=== PATIENT | female | born 1990 | race Native Hawaiian/Other Pacific Islander ===

== ENCOUNTER → 2019-11-24 17:23 | Outpatient (CLI) | payer OTHER, SELFPAY ==
[2019-11-24 19:53] LABS: Urine N gonorrhoeae NOT DETECTED
[2019-11-24 20:48] LABS: Urine Chlamydia NOT DETECTED
[2019-11-25 03:17] LABS: HBsAg Screen Negative (Negative); Hepatitis A Antibody IgM Negative (Negative); Hepatitis B Core Antibody IgM Negative (Negative); Hepatitis C Antibody 0.1 s/co ratio (0.0-0.9)
[2019-11-25 04:36] LABS: RPR Screen Non Reactive (Non Reactive)
[2019-11-25 20:07] LABS: HSV I/II IgM <0.91 Ratio (0.00-0.90)
[2019-11-26 16:31] LABS: HIV 1 & 2 Ab/Ag 4th Gen Combo NEGATIVE (NEGATIVE)
== END ==
PROVIDERS: PCP Family Medicine; Referring Provider Family Medicine; Visit Provider Family Medicine
DX: Z20.2 Contact with and (suspected) exposure to infections with a predominantly sexual mode of transmission (principal)
CPT/HCPCS: 36415; 80074; 86592; 86694; 87389; 87491; 87591

== ENCOUNTER 2019-11-30 13:16 | Emergency (ER) | payer OTHER, SELFPAY ==
[2019-11-30 13:30] VITALS: PULSE 119; RESP 20; TEMP 36.7; O2SAT 98; BMI 44.9
[2019-11-30] MEDS: CYCLOBENZAPRINE 10 MG TABLET PO (16:16)
--- NOTE | 2019-11-30 16:17 | ED_ITS ---
HPI - Headache <BASILIO Chapmion-BC - Last Filed: 11/30/19 18:26> General Chief Complaint: Headache Stated Complaint: migrane Time Seen by Provider: 11/30/19 15:12 Source: patient Mode of arrival: Ambulatory Limitations: no limitations History of Present Illness HPI Narrative: The patient is a 29-year-old female former smoker with history of migraines who presents with a chief complaint of a migraine. She has had it since Saturday, started with pain in her neck going up over her head. She complains of photophobia, phonophobia, nausea with vomiting yesterday. She states she took Aleve to try to help the headache initially, has not taken anything in a few days. She states that her vision is okay though light hurts her eyes. Denies any cognitive neurological changes. She states that she has a pending referral to Neurology that is not gone through yet. She started a new primary care provider on 11/23. She denies any thunderclap sensation. The headache got a little better on Saturday, though then reoccurred. Related Data Home Medications Medication Instructions Recorded Confirmed CHOLECALCIFEROL (VITAMIN D3) 5,000 iu PO QDAY #0 11/30/11 12/02/19 (VITAMIN D) ENZYMES (DIGESTIVE ENZYMES) 1 tab PO BID #0 11/30/11 12/02/19 prochlorperazine maleate 10 mg 10 mg PO tab 11/24/19 12/02/19 tablet Previous Rx's Medication Instructions Recorded metaxalone 800 mg tablet 800 mg PO TID #60 tab 12/02/19 ondansetron 4 mg disintegrating 4 mg SUBLINGUAL Q8HP #20 tab 12/02/19 tablet sumatriptan 20 mg/actuation nasal 20 mg NASAL ONCE #1 each 12/02/19 spray Allergies Allergy/AdvReac Type Severity Reaction Status Date / Time acetaminophen [ACETAMINOPHEN] Allergy Mild NAUSEA/ Verified 12/02/19 08:33 VICODIN hydrocodone [HYDROCODONE] Allergy Mild VOMITING/ Verified 12/02/19 08:33 VICODIN Review of Systems <JEANETTE ChampionBC - Last Filed: 11/30/19 18:26> Review of Systems Narrative: GENERAL: Denies chills, fatigue, malaise, fever, sweats. HEENT: Denies sinus pain, ear pain, sore throat, difficulty swallowing, dizziness. RESPIRATORY: Denies dyspnea, cough, wheezing, hemoptysis, sputum. CARDIOVASCULAR: Denies chest pain, palpitations, orthopnea, edema, GASTROINTESTINAL: Denies nausea, vomiting, abdominal pain, diarrhea, constipation, melena. : Denies dysuria, frequency, incontinence, hematuria, urinary retention. MUSCULOSKELETAL: denies weakness, joint pain, or bony pain SKIN: Denies rash, skin lesions, or other NEUROLOGIC: See HPI PSYCHIATRIC: No concerning psychosocial issues. 12 point review of systems is negative except for those stated above Patient History <JENI Champion - Last Filed: 11/30/19 18:26> Medical History (Updated 12/02/19 @ 09:25 by MARGOT Lee) Migraines (Acute) Nausea (Acute) Neck tightness (Acute) Social History Smoking Status: Former smoker Tobacco: How many years used: 9 quit status: quit date established second hand exposure: No alcohol intake: current (Drinks once in awhile ) substance use type: marijuana (1/4-1/2 gram per night to help with sleep) Smoking Status: Former smoker alcohol intake frequency: holidays/special occasions only Substance Use Type: marijuana Exam <JENI Champion - Last Filed: 11/30/19 18:26> Narrative Exam Narrative: GENERAL: This is a well-nourished, well-developed patient, appears uncomfortable HEAD: Atraumatic. Normocephalic. No temporal or scalp tenderness. EYES: Pupils equal round and reactive. Extraocular motions intact. No scleral icterus. No injection or drainage. ENT: Nose without bleeding, purulent drainage or septal hematoma. Throat without erythema, tonsillar hypertrophy or exudate. Uvula midline. Airway patent. NECK: Trachea midline. No JVD or lymphadenopathy. Supple, nontender, no meningeal signs. Pain to paraspinal muscle palpation. CARDIOVASCULAR: Regular rate and rhythm RESPIRATORY: Clear to auscultation. Breath sounds equal bilaterally. No wheezes, rales, or rhonchi. No cough. No increased respiratory effort. No accessory muscle use. GASTROINTESTINAL: Abdomen soft, non-tender, nondistended. No hepato- splenomegaly, or palpable masses. No guarding. EXTREMITIES: No clubbing, cyanosis, or edema. No joint tenderness, effusion, or edema noted. BACK: Nontender without deformity or crepitance. No flank tenderness. NEURO: AOx3. Cranial nerves grossly intact. Clear speech. SKIN: No rash or erythema on visible skin Initial Vital Signs Initial Vital Signs: Vital Signs Temperature 98.0 F 11/30/19 13:30 Pulse Rate 119 H 11/30/19 13:30 Respiratory Rate 20 11/30/19 13:30 Pulse Oximetry 98 11/30/19 13:30 <Renetta Llanos MD - Last Filed: 12/08/19 08:27> Initial Vital Signs Initial Vital Signs: Vital Signs Temperature 98.0 F 11/30/19 13:30 Pulse Rate 119 H 11/30/19 13:30 Respiratory Rate 20 11/30/19 13:30 Pulse Oximetry 98 11/30/19 13:30 Scores <JENI Champion - Last Filed: 11/30/19 18:26> GCS [place] coma scale eye opening: Spontaneous [place] coma scale verbal response: Orientated [place] coma scale motor response: Obey commands [place] coma scale total score: 15 NIH Stroke Scale Level of Conciousness: Alert, keenly responsive Ask month/age: Answers both questions correctly. Open/close eyes, close hand: Performs both tasks correctly Best gaze horizontal: Normal Visual archibald: No visual loss Facial palsy: Normal symetrical movement Left arm drift: No drift for full 10 sec Right arm drift: No drift for full 10 sec Left leg drift: No drift for full 10 sec Right leg drift: No drift for full 10 sec Limb ataxia: Absent Sensory on face/arms/legs: Normal, no sensory loss Best language: No aphasia, normal Dysarthria: Normal Extinction or inattention: No abnormality Total NIH Stroke scale score: 0 Course <JENI Champion - Last Filed: 11/30/19 18:26> Orders Ordered: Discontinued Medications Cyclobenzaprine HCl (Flexeril) 10 mg PO NOW ONE Stop: 11/30/19 15:35 Last Admin: 11/30/19 16:16 Dose: 10 mg Documented by: CRISTIAN Diphenhydramine HCl (Benadryl) 25 mg IV NOW ONE Stop: 11/30/19 15:35 Last Admin: 11/30/19 16:18 Dose: 25 mg Documented by: CRISTIAN Sodium Chloride (Normal Saline 0.9%) 1,000 mls @ 1,000 mls/hr IV BOLUS ONE Stop: 11/30/19 16:33 Last Infusion: 11/30/19 18:35 Dose: 0 mls/hr Documented by: Admin: 11/30/19 16:18 Dose: 1,000 mls/hr Documented by: CRISTIAN Ketorolac Tromethamine (Toradol) 30 mg IV NOW ONE Stop: 11/30/19 15:35 Last Admin: 11/30/19 16:28 Dose: 30 mg Documented by: CRISTIAN Metoclopramide HCl (Reglan) 10 mg IV NOW ONE Stop: 11/30/19 15:35 Last Admin: 11/30/19 16:19 Dose: 10 mg Documented by: CRISTIAN Vital Signs Vital signs: Vital Signs - 8 hr 11/30/19 13:30 11/30/19 18:19 Temperature 98.0 F Pulse Rate 119 H 73 Respiratory Rate 20 16 Blood Pressure 137/88 Pulse Oximetry 98 98 <Renetta Llanos MD - Last Filed: 12/08/19 08:27> Orders Ordered: Discontinued Medications Cyclobenzaprine HCl (Flexeril) 10 mg PO NOW ONE Stop: 11/30/19 15:35 Last Admin: 11/30/19 16:16 Dose: 10 mg Documented by: CRISTIAN Diphenhydramine HCl (Benadryl) 25 mg IV NOW ONE Stop: 11/30/19 15:35 Last Admin: 11/30/19 16:18 Dose: 25 mg Documented by: CRISTIAN Sodium Chloride (Normal Saline 0.9%) 1,000 mls @ 1,000 mls/hr IV BOLUS ONE Stop: 11/30/19 16:33 Last Infusion: 11/30/19 18:35 Dose: 0 mls/hr Documented by: Admin: 11/30/19 16:18 Dose: 1,000 mls/hr Documented by: CRISTIAN Ketorolac Tromethamine (Toradol) 30 mg IV NOW ONE Stop: 11/30/19 15:35 Last Admin: 11/30/19 16:28 Dose: 30 mg Documented by: CRISTIAN Metoclopramide HCl (Reglan) 10 mg IV NOW ONE Stop: 11/30/19 15:35 Last Admin: 11/30/19 16:19 Dose: 10 mg Documented by: CRISTIAN Vital Signs Vital signs: Vital Signs - 8 hr 11/30/19 13:30 11/30/19 18:19 Temperature 98.0 F Pulse Rate 119 H 73 Respiratory Rate 20 16 Blood Pressure 137/88 Pulse Oximetry 98 98 MDM - Headache <JENI Champion - Last Filed: 11/30/19 18:26> Differential Diagnosis Differential diagnosis: Likely migraine, tension headache and headache Lab Data Labs: Lab Results 11/30/19 Range/Units 16:27 Urine RBC None seen (0-5/HPF) Urine WBC 5-10/hpf H (0-5/HPF) Ur Squamous Epith Cells 1-5 /hpf (0-5/HPF) Urine Bacteria Moderate (10-30) H (None) Urine Mucus 1+ H (Negative) Ur Culture Indicated? Specimen cultured Point of Care Testing Test Results Negative Urine Dip Bedside Urine Glucose Negative Bedside Urine Bilirubin + 1 Bedside Urine Ketone +/- 5 Urine Specific [place] 1.025 Bedside Urine Occult Blood - Negative Bedside Urine pH 6.0 Bedside Urine Protein +/- 15 Bedside Urine Urobilinogen - Negative Bedside Urine Nitrite - Negative Bedside Urine Leukocytes ++ 125 Esterase MDM Narrative Medical decision making narrative: The patient is a 29-year-old female with history of migraines who presents with a chief complaint of a migraine the past few days. Her GCS is 15, her NIH score is 0, and she feels much improved after the above-stated therapies and is requesting to go home. I encouraged rest, pushing fluids, follow-up with primary care provider in the next few days. Discussed at length that she should come back to the emergency department for any acute concerns such as neurological concerns. Patient has no questions or concerns upon discharge and states understanding of return precautions as well as follow-up care. The patient was well and nontoxic appearing, hemodynamically stable throughout her stay in the emergency department <Renetta Llanos MD - Last Filed: 12/08/19 08:27> Lab Data Labs: Lab Results 08/31/20 Range/Units 16:27 Urine RBC None seen (0-5/HPF) Urine WBC 5-10/hpf H (0-5/HPF) Ur Squamous Epith Cells 1-5 /hpf (0-5/HPF) Urine Bacteria Moderate (10-30) H (None) Urine Mucus 1+ H (Negative) Ur Culture Indicated? Specimen cultured Point of Care Testing Test Results Negative Urine Dip Bedside Urine Glucose Negative Bedside Urine Bilirubin + 1 Bedside Urine Ketone +/- 5 Urine Specific [place] 1.025 Bedside Urine Occult Blood - Negative Bedside Urine pH 6.0 Bedside Urine Protein +/- 15 Bedside Urine Urobilinogen - Negative Bedside Urine Nitrite - Negative Bedside Urine Leukocytes ++ 125 Esterase Discharge Plan Departure Patient Disposition: Home Clinical Impression: Migraine Qualifiers: Migraine type: unspecified Status migrainosus presence: without status migrainosus Intractability: not intractable Qualified Code(s): G43.909 - Migraine, unspecified, not intractable, without status migrainosus Discharge Date/Time: 11/30/19 18:38 Instructions: DI for Migraine, DI for Headache Activity Restrictions/Additional Instructions: Thank you for trusting us with your care today Today we medicated due for a migraine in your responded well. Please go home and rest, push fluids. He can use [id number] medications as needed and able Please come back to the emergency department for any acute concerns such as neurological concerns Prescriptions: No Action ENZYMES (DIGESTIVE ENZYMES) 1 tab PO BID Qty: 0 RF: 0 CHOLECALCIFEROL (VITAMIN D3) (VITAMIN D) 5,000 iu PO QDAY Qty: 0 RF: 0 prochlorperazine maleate 10 mg tablet 10 mg PO RF: 0 sumatriptan 20 mg/actuation spray,non-aerosol 20 mg NASAL ONCE Qty: 1 RF: 0 ondansetron 4 mg tablet,disintegrating 4 mg Sublingual Q8HP Qty: 20 RF: 0 metaxalone [Skelaxin] 800 mg tablet 800 mg PO TID Qty: 60 RF: 0 Referrals: Hans Prescott, DO [Primary Care Provider] - Stand Alone Forms: Work Release Note <Renetta Llanos MD - Last Filed: 12/08/19 08:27> Cosign ED Attending Aaronature Attestation: I was immediately available in the department for consultation throughout this patient's visit. I agree with documentation as above. Renetta Llanos MD
[2019-11-30] MEDS: diphenhydrAMINE 50 MG/ML VIAL 25 MG IV (16:18)
[2019-11-30] MEDS: SODIUM CHLORIDE 0.9% 1,000 ML 1000 ML IV (16:18)
[2019-11-30] MEDS: METOCLOPRAMIDE 10 MG/2 ML INJ IV (16:19)
[2019-11-30] MEDS: KETOROLAC 60 MG/2 ML VIAL 30 MG IV (16:28)
[2019-11-30 16:39] LABS: RBC Urine None Seen (0-5/HPF)
[2019-11-30 17:01] LABS: Bacteria Urine Moderate (10-30); Culture Indicated Urine Specimen Cultured; Mucus Urine 1+ (Negative); Squamous Epithelial Cell Urine 1-5 /HPF (0-5/HPF); WBC Urine 5-10/HPF (0-5/HPF)
[2019-11-30 18:19] VITALS: BP 137/88; PULSE 73; RESP 16; O2SAT 98
== END 2019-11-30 18:38 | disposition home or self-care (01) ==
PROVIDERS: Emergency Provider Nurse Practitioner Family; PCP Family Medicine
DX: G43.909 Migraine, unspecified, not intractable, without status migrainosus (principal); R11.2 Nausea with vomiting, unspecified
CPT/HCPCS: 36415; 81003; 81015; 81025; 87077; 87086; 87147; 87186; 96361; 96374; 96375; 99284; J1200; J1885; J2765

== ENCOUNTER → 2020-07-29 16:28 | Outpatient (CLI) | payer OTHER, SELFPAY ==
[2020-07-29 16:53] LABS: COVID19 -Nasal RAPID Negative (Negative)
== END ==
PROVIDERS: PCP Family Medicine; Visit Provider Student in an Organized Health Care Education/Training Program
DX: Z20.822 Contact with and (suspected) exposure to COVID-19 (principal)
CPT/HCPCS: 87635

== ENCOUNTER → 2024-06-17 09:23 | Outpatient (CLI) | payer OTHER, SELFPAY ==
[2024-06-17 10:34] LABS: Glucose Fasting 107 mg/dL (70-100)
[2024-06-17 11:34] LABS: Glucose 1 Hour 199 mg/dL (70-170)
[2024-06-17 11:48] LABS: Glucose Tol Interpretation INTERPRETATION
[2024-06-17 12:42] LABS: Glucose 2 Hour 190 mg/dL (70-140)
== END ==
PROVIDERS: Referring Provider Nurse Practitioner Obstetrics & Gynecology; Visit Provider Nurse Practitioner Obstetrics & Gynecology
DX: Z34.90 Encounter for supervision of normal pregnancy, unspecified, unspecified trimester (principal); Z13.1 Encounter for screening for diabetes mellitus; Z3A.16 16 weeks gestation of pregnancy
CPT/HCPCS: 36415; 82951; 82952

== ENCOUNTER → 2024-08-26 09:11 | Outpatient (CLI) | payer OTHER, SELFPAY ==
[2024-08-26 10:39] LABS: Glucose Fasting 104 mg/dL (70-100)
[2024-08-26 12:03] LABS: Glucose 1 Hour 214 mg/dL (70-170)
[2024-08-26 12:37] LABS: Glucose 2 Hour 127 mg/dL (70-140); Glucose Tol Interpretation INTERPRETATION
== END ==
PROVIDERS: Referring Provider Nurse Practitioner Obstetrics & Gynecology; Visit Provider Nurse Practitioner Obstetrics & Gynecology
DX: Z34.90 Encounter for supervision of normal pregnancy, unspecified, unspecified trimester (principal); Z13.1 Encounter for screening for diabetes mellitus; Z3A.16 16 weeks gestation of pregnancy
CPT/HCPCS: 36415; 82951; 82952

== ENCOUNTER 2024-09-04 15:36 | Emergency (ER) | payer OTHER, SELFPAY ==
[2024-09-04 15:38] VITALS: BP 132/91; PULSE 100; RESP 16; TEMP 36.9; O2SAT 97; BMI 44.4
[2024-09-04 15:55] LABS: Add Manual Diff / Slide Review NO; Basophils Absolute Auto 0 /uL (0-100); Basophils Percent Auto 0.3 % (0-2); Eosinophils Absolute Auto 0 /uL (0-450); Eosinophils Percent Auto 0.3 % (2-4); Hematocrit 36.2 % (36-46); Lymphocytes Absolute Auto 2200 /uL (1100-4500); Lymphocytes Percent Auto 24.1 % (25-40); Mean Corpuscular HGB Conc 33.2 % (30-36); Mean Corpuscular Hemoglobin 27.5 PG (26-34); Mean Corpuscular Volume 82.9 fL (80-100); Monocytes Absolute Auto 600 /uL (0-900); Monocytes Percent Auto 6.4 % (3-14); Neutrophils Absolute Auto 6400 /uL (1500-7000); Neutrophils Percent Auto 68.9 % (50-75); Platelet Count 261 X10^3/uL (150-400); Red Blood Cell Count 4.37 X10^6/uL (4.0-5.2); Red Cell Distribution Width 13.9 % (11.6-14.8); White Blood Cell Count 9.2 X10^3/uL (4.5-11.0)
[2024-09-04 16:06] LABS: Alanine Aminotransferase 34 IU/L (<35); Albumin 4.6 g/dL (3.5-5.0); Albumin Globulin Ratio 1.4 (1.0-2.8); Alkaline Phosphatase 70 U/L (38-126); Aspartate Aminotransferase 37 IU/L (14-36); BUN Creatinine Ratio 9.2 (6-22); Bilirubin Total 2.2 mg/dL (0.2-1.3); Blood Urea Nitrogen 7 mg/dL (7-17); Calcium 9.2 mg/dL (8.4-10.2); Carbon Dioxide 18 mmol/L (22-32); Chloride 109 mmol/L (98-107); Estimated Glomerular Filt Rate > 60 mL/min (>60); Globulin 3.3 g/dL (1.7-4.1); Glucose 98 mg/dL (70-99); HEMOLYSIS < 15 (0-50); Lipase 43 U/L (23-300); Potassium 3.1 mmol/L (3.4-5.1); Sodium 139 mmol/L (137-145); Total Protein 7.9 g/dL (6.3-8.2)
[2024-09-04] MEDS: ONDANSETRON 4 MG/2 ML INJ IV (16:20)
[2024-09-04] MEDS: HYDROMORPHONE 1 MG INJ IV ×3 (16:20→18:49)
[2024-09-04] MEDS: SODIUM CHLORIDE 0.9% 1,000 ML 1000 ML IV (16:20)
--- NOTE | 2024-09-04 16:23 | ED.ABDPAIN ---
HPI - Abdominal Pain <Randall Nuno, DO - Last Filed: 09/04/24 18:35> General Chief Complaint: Abdominal Pain Stated Complaint: Abd. Pain Time Seen by Provider: 09/04/24 15:40 History of Present Illness HPI narrative: 34-year-old female history of kidney stone and recent termination of at 19 weeks in [place] to a nonviable back in June this year presents today at 2:00 p.m. after being woken up from sleep right upper quadrant pain radiating to the back along with nausea. She did have a bowel movement earlier today and that was normal. She denies fever, chills, chest pain, shortness of breath, cough, hematuria, vaginal discharge, UTI symptoms, diarrhea or constipation. Other than what is stated 14 point review of system is negative. Related Data Home Medications ?Medication ?Instructions ?Recorded ?Confirmed ENZYMES (DIGESTIVE ENZYMES) 1 tab PO BID ##0 11/30/11 07/29/20 prochlorperazine maleate 10 mg 10 mg PO 11/24/19 07/29/20 tablet metaxalone 800 mg tablet (Skelaxin) 800 mg PO TID PRN 01/01/20 07/29/20 Previous Rx's ?Medication ?Instructions ?Recorded trazodone 50 mg tablet 50 mg PO BEDTIME #30 tabs 12/16/19 sumatriptan succinate 100 mg See Rx Instructions PO .COMPLEX 12/23/19 tablet (Imitrex) #10 tabs hydrocodone 5 mg-acetaminophen 325 1 tab PO Q4-6H PRN pain #20 tabs 09/04/24 mg tablet ondansetron 4 mg disintegrating 4 mg PO Q6H PRN nausea and 09/04/24 tablet vomiting #10 tabs tamsulosin 0.4 mg capsule (Flomax) 0.4 mg PO BEDTIME #30 caps 09/04/24 Allergies Allergy/AdvReac Type Severity Reaction Status Date / Time acetaminophen (ACETAMINOPHEN) Allergy Mild NAUSEA/ Verified 07/29/20 16:27 VICODIN hydrocodone (HYDROCODONE) Allergy Mild VOMITING/ Verified 07/29/20 16:27 VICODIN Review of Systems <Randall Nuno, DO - Last Filed: 09/04/24 18:35> Review of Systems ROS Unobtainable: All systems reviewed & are unremarkable except as noted in HPI and below Patient History <Randall Nuno, DO - Last Filed: 09/04/24 18:35> Medical History Abscess Acne Ankle pain (~2014) Chicken pox (~1995) Chlamydia (~2013) Fractures History of recurrent ear infection Insomnia Irregular menstrual cycle (~2004) Migraine aura without headache Migraines Nausea Neck tightness Nexplanon removal (12/2019) Recurrent sinusitis Sleep apnea (~2009) Vaginal cysts Surgical History Anesthesia History of intestinal surgery (~1988) Kidney stones (~2016) Family History Father Diabetes mellitus Hyperlipidemia Hypertension Mental health problem Stroke Mother Diabetes mellitus History of heart disease Hyperlipidemia Hypertension Mental health problem Social History Tobacco: How many years used: 9 quit status: quit date established second hand exposure: No alcohol intake: current (Drinks once in awhile ) substance use type: marijuana (1/4-1/2 gram per night to help with sleep) alcohol intake frequency: holidays/special occasions only Exam <Randall Nuno, DO - Last Filed: 09/04/24 18:35> Narrative Exam Narrative: GENERAL: [34] year old patient appears stated age. Well-developed patient, in mild distress. HEAD: Atraumatic. Normocephalic. EYES: Pupils equal round and reactive. Extraocular motions intact. No scleral icterus. No injection or drainage. ENT: Nose without bleeding, purulent drainage. Throat without erythema, tonsillar hypertrophy or exudate. Airway patent. NECK: Trachea midline. Non tender CARDIOVASCULAR: Regular rate and rhythm without murmurs, gallops, or rubs. RESPIRATORY: Clear to auscultation. Breath sounds equal bilaterally. No wheezes, rales, or rhonchi. GASTROINTESTINAL: Abdomen soft, RUQ TTP, nondistended. EXTREMITIES: No edema or joint tenderness. BACK: Nontender without deformity or crepitance. No flank tenderness. NEURO: AOx3. SKIN: No rash or erythema of visible areas Initial Vital Signs Initial Vital Signs: Vital Signs Temperature 98.4 F 09/04/24 15:38 Pulse Rate 100 H 09/04/24 15:38 Respiratory Rate 16 09/04/24 15:38 Blood Pressure 132/91 H 09/04/24 15:38 Pulse Oximetry 97 09/04/24 15:38 Oxygen Delivery Method Room Air 09/04/24 15:38 <Guanaco Waters MD - Last Filed: 09/05/24 02:15> Initial Vital Signs Initial Vital Signs: Vital Signs Temperature 98.4 F 09/04/24 15:38 Pulse Rate 100 H 09/04/24 15:38 Respiratory Rate 16 09/04/24 15:38 Blood Pressure 132/91 H 09/04/24 15:38 Pulse Oximetry 97 09/04/24 15:38 Oxygen Delivery Method Room Air 09/04/24 15:38 Course <Randall Nuno DO - Last Filed: 09/04/24 18:35> Orders Ordered: ED Orders 09/04/24 18:01 UA Complete [Urinalysis and Microscopic] Stat Discontinued Medications Hydromorphone HCl (Hydromorphone 1 Mg Inj) 1 mg IV NOW ONE Stop: 09/04/24 16:15 Last Admin: 09/04/24 16:20 Dose: 1 mg Documented By: ARIAN Hydromorphone HCl (Hydromorphone 1 Mg Inj) 1 mg IV NOW ONE Stop: 09/04/24 16:16 Last Admin: 09/04/24 16:43 Dose: 1 mg Documented By: ARIAN Hydromorphone HCl (Hydromorphone 1 Mg Inj) 1 mg IV NOW ONE Stop: 09/04/24 18:32 Last Admin: 09/04/24 18:49 Dose: 1 mg Documented By: SHARRON Sodium Chloride (Normal Saline 0.9%) 1,000 mls @ 1,000 mls/hr IV BOLUS ONE Stop: 09/04/24 17:14 Last Infusion: 09/04/24 17:47 Dose: Infused Documented By: Admin: 09/04/24 16:20 Dose: 1,000 mls/hr Documented By: ARIAN Ondansetron HCl (Ondansetron 4 Mg/2 Ml Inj) 4 mg IV NOW PRN PRN Reason: Nausea And Vomiting Last Admin: 09/04/24 16:20 Dose: 4 mg Documented By: ARIAN Ondansetron HCl (Ondansetron 4 Mg Odt) 4 mg PO NOW PRN PRN Reason: Nausea And Vomiting Last Admin: 09/04/24 18:50 Dose: 4 mg Documented By: SHARRON Ondansetron HCl (Ondansetron 4 Mg Odt Prepack) 1 bottle MISC DIRECTED ONE Stop: 09/04/24 20:09 Last Admin: 09/04/24 20:18 Dose: 1 bottle Documented By: RLC Potassium Chloride (Potassium Chloride 20 Meq/15 Ml Udc) 40 meq PO NOW ONE Stop: 09/04/24 16:46 Last Admin: 09/04/24 17:50 Dose: 40 meq Documented By: LM Tamsulosin HCl (Tamsulosin 0.4 Mg Capsule) 0.4 mg PO NOW ONE Stop: 09/04/24 18:24 Last Admin: 09/04/24 18:50 Dose: 0.4 mg Documented By: LM Vital Signs Vital signs: Vital Signs - 8 hr 09/04/24 19:21 09/04/24 19:25 09/04/24 19:25 Pulse Rate 69 62 Respiratory Rate 16 Blood Pressure 109/58 L Pulse Oximetry 98 98 Oxygen Delivery Method Room Air <Guanaco Waters MD - Last Filed: 09/05/24 02:15> Orders Ordered: ED Orders 09/04/24 18:01 UA Complete [Urinalysis and Microscopic] Stat Discontinued Medications Hydromorphone HCl (Hydromorphone 1 Mg Inj) 1 mg IV NOW ONE Stop: 09/04/24 16:15 Last Admin: 09/04/24 16:20 Dose: 1 mg Documented By: ARIAN Hydromorphone HCl (Hydromorphone 1 Mg Inj) 1 mg IV NOW ONE Stop: 09/04/24 16:16 Last Admin: 09/04/24 16:43 Dose: 1 mg Documented By: ARIAN Hydromorphone HCl (Hydromorphone 1 Mg Inj) 1 mg IV NOW ONE Stop: 09/04/24 18:32 Last Admin: 09/04/24 18:49 Dose: 1 mg Documented By: SHARRON Sodium Chloride (Normal Saline 0.9%) 1,000 mls @ 1,000 mls/hr IV BOLUS ONE Stop: 09/04/24 17:14 Last Infusion: 09/04/24 17:47 Dose: Infused Documented By: Admin: 09/04/24 16:20 Dose: 1,000 mls/hr Documented By: ARIAN Ondansetron HCl (Ondansetron 4 Mg/2 Ml Inj) 4 mg IV NOW PRN PRN Reason: Nausea And Vomiting Last Admin: 09/04/24 16:20 Dose: 4 mg Documented By: ARIAN Ondansetron HCl (Ondansetron 4 Mg Odt) 4 mg PO NOW PRN PRN Reason: Nausea And Vomiting Last Admin: 09/04/24 18:50 Dose: 4 mg Documented By: SHARRON Ondansetron HCl (Ondansetron 4 Mg Odt Prepack) 1 bottle MISC DIRECTED ONE Stop: 09/04/24 20:09 Last Admin: 09/04/24 20:18 Dose: 1 bottle Documented By: MESSI Potassium Chloride (Potassium Chloride 20 Meq/15 Ml Udc) 40 meq PO NOW ONE Stop: 09/04/24 16:46 Last Admin: 09/04/24 17:50 Dose: 40 meq Documented By: SHARRON Tamsulosin HCl (Tamsulosin 0.4 Mg Capsule) 0.4 mg PO NOW ONE Stop: 09/04/24 18:24 Last Admin: 09/04/24 18:50 Dose: 0.4 mg Documented By: SHARRON Vital Signs Vital signs: Vital Signs - 8 hr 09/04/24 19:21 09/04/24 19:25 09/04/24 19:25 Pulse Rate 69 62 Respiratory Rate 16 Blood Pressure 109/58 L Pulse Oximetry 98 98 Oxygen Delivery Method Room Air MDM - Abdominal Pain <Randall Sheila Nuno, DO - Last Filed: 09/04/24 18:35> Lab Data 09/04/24 15:44 09/04/24 15:44 Labs: Lab Results 09/04/24 09/04/24 Range/Units 15:44 18:01 WBC 9.2 (4.5-11.0) X10^3/uL RBC 4.37 (4.0-5.2) X10^6/uL Hgb 12.0 (12.0-16.0) g/dL Hct 36.2 (36-46) % MCV 82.9 (80-100) fL MCH 27.5 (26-34) PG MCHC 33.2 (30-36) % RDW 13.9 (11.6-14.8) % Plt Count 261 (150-400) X10^3/uL Neut % (Auto) 68.9 (50-75) % Lymph % (Auto) 24.1 L (25-40) % [place] % (Auto) 6.4 (3-14) % Eos % (Auto) 0.3 L (2-4) % Baso % (Auto) 0.3 (0-2) % Neut # (Auto) 6400 (0798-6370) /uL Lymph # (Auto) 2200 (9223-8052) /uL [place] # (Auto) 600 (0-900) /uL Eos # (Auto) 0 (0-450) /uL Baso # (Auto) 0 (0-100) /uL Sodium 139 (137-145) mmol/L Potassium 3.1 L (3.4-5.1) mmol/L Chloride 109 H (98-107) mmol/L Carbon Dioxide 18 L (22-32) mmol/L BUN 7 (7-17) mg/dL Creatinine 0.76 (0.52-1.04) mg/dL Estimated GFR > 60 (>60) mL/min BUN/Creatinine Ratio 9.2 (6-22) Glucose 98 (70-99) mg/dL Calcium 9.2 (8.4-10.2) mg/dL Total Bilirubin 2.2 H (0.2-1.3) mg/dL AST 37 H (14-36) IU/L ALT 34 (<35) IU/L Alkaline Phosphatase 70 (38-126) U/L Total Protein 7.9 (6.3-8.2) g/dL Albumin 4.6 (3.5-5.0) g/dL Globulin 3.3 (1.7-4.1) g/dL Albumin/Globulin Ratio 1.4 (1.0-2.8) Lipase 43 (23-300) U/L Urine Color Yellow Urine Appearance Clear Urine pH 6.0 (4.5-8.0) Ur Specific Vaughn <=1.005 (1.000-1.035) Urine Protein Negative (Negative) Urine Glucose (UA) Negative (Negative) g/dL Urine Ketones Negative (NEGATIVE) Urine Occult Blood 2+ H (Negative) Urine Nitrate Negative (Negative) Urine Bilirubin Negative (NEGATIVE) Urine Urobilinogen 0.2 (0.2) E.U./dL Ur Leukocyte Esterase Negative (NEGATIVE) Urine RBC 1-5/hpf (0-5/HPF) Urine WBC 0-1/hpf (0-5/HPF) Ur Squamous Epith Cells 1-5 /hpf (0-5/HPF) Urine Bacteria None seen (None) Ur Culture Indicated? Cult not indicated Vol Urine Centrifuged 10ml (spun) Point of care testing: Point of Care Testing Test Results Negative Urine Dip Bedside Urine Glucose Negative Bedside Urine Bilirubin - Negative Bedside Urine Ketone - Negative Urine Specific Vaugh[place] 1.005 Bedside Urine Occult Blood +++ Bedside Urine pH 6.0 Bedside Urine Protein - Negative Bedside Urine Urobilinogen - Negative Bedside Urine Nitrite - Negative Bedside Urine Leukocytes - Negative Esterase Imaging Data CT scan - abdomen/pelvis: Radiologist's Impression: [address] [address] [address] Scan Report Signed Patient: Elly Porter MR#: [id number] : 1990 Acct:[id number] Age/Sex: 34 / F Date of Service: 09/04/24 Loc: ED Accession Number: [id number] Procedure: CT abdomen pelvis w con Ordering Provider: Randall Nuno D.O. PROCEDURE: CT ABDOMEN PELVIS W CON INDICATIONS: abd pain, nausea TECHNIQUE: After the administration of intravenous contrast, axial sections acquired from the lung bases to the pubic symphysis. Coronal and sagittal reformats were performed. For radiation dose reduction, the following was used: automated exposure control, adjustment of mA and/or kV according to patient size. COMPARISON: None. FINDINGS: Image quality: Diagnostic. Lower Chest: No significant findings. ABDOMEN: Liver: No solid mass. Gallbladder: No radiopaque gallstones or wall thickening. Biliary ducts: No biliary dilation. Pancreas: No ductal dilation. Spleen: Size is within normal limits. Adrenal Glands: No adrenal nodules. Kidneys and Ureters: There is mild right hydronephrosis. There is decreased enhancement of the renal cortex. There is a 3 millimeter stone in the right proximal ureter, the level of the L3 inferior endplate. There is also a stone in the proximal portion of the left ureter measuring 4.5 millimeter in length and 1.5 millimeter in thickness. Stomach and Bowel: Normal colonic caliber, without significant wall thickening. Peritoneum: No abnormal intraperitoneal fluid. No free air. Ventral Wall: No significant ventral hernia. Abdominal Nodes: No retroperitoneal or mesenteric adenopathy by size criteria. Vessels: Aorta and inferior vena cava are normal in size. PELVIS: Pelvic Organs: Unremarkable. Bladder: No bladder wall thickening, accounting for underdistention. Pelvic Nodes: No enlarged lymph nodes. Miscellaneous: No inguinal hernias are seen. There is a elliptical fluid containing structure in the perineum in a central and right paramedian location measuring 2.3 x 1.45 x 1.1 cm. Bones: No aggressive osseous abnormality. IMPRESSION: 1. There is a 3 millimeter obstructing stone in the right proximal ureter, with mild right hydronephrosis. 2. There is also a stone in the proximal left ureter measuring up to 4.5 millimeter, without signs of obstructive uropathy on the left. 3. Findings most suggestive of urethral diverticulum, measuring up to 2.3 cm. Dictated by: Darin Felix M.D. on 09/04/2024 at 17:20 Approved by: Darin Felix M.D. on 09/04/2024 at 17:26 MDM Narrative Medical decision making narrative: All lab work, vital signs, nurse triage note, medication list, and previous ER visits all reviewed. CT scan showed 3 mm obstructing stone in the right proximal ureter with mild right hydronephrosis. There is also a stone in the proximal left ureter measuring up to 4.5 cm without signs of obstructive uropathy on the left. Findings most suggestive of a urethral diverticulum measuring up to 2.3cm. Patient given fluids potassium Dilaudid Zofran Flomax strainer here and will be sent home on [place] Flomax strainer and to follow up with Urology. Afebrile no white count, potassium 3.1 T bili 2.2 BUN 7 creatinine 0.76. Differential diagnosis diverticulitis pancreatitis cholecystitis kidney stone kidney infection UTI. <Guanaco Waters MD - Last Filed: 09/05/24 02:15> Lab Data Labs: Lab Results 09/04/24 09/04/24 Range/Units 15:44 18:01 WBC 9.2 (4.5-11.0) X10^3/uL RBC 4.37 (4.0-5.2) X10^6/uL Hgb 12.0 (12.0-16.0) g/dL Hct 36.2 (36-46) % MCV 82.9 (80-100) fL MCH 27.5 (26-34) PG MCHC 33.2 (30-36) % RDW 13.9 (11.6-14.8) % Plt Count 261 (150-400) X10^3/uL Neut % (Auto) 68.9 (50-75) % Lymph % (Auto) 24.1 L (25-40) % [place] % (Auto) 6.4 (3-14) % Eos % (Auto) 0.3 L (2-4) % Baso % (Auto) 0.3 (0-2) % Neut # (Auto) 6400 (7169-9238) /uL Lymph # (Auto) 2200 (5600-4084) /uL [place] # (Auto) 600 (0-900) /uL Eos # (Auto) 0 (0-450) /uL Baso # (Auto) 0 (0-100) /uL Sodium 139 (137-145) mmol/L Potassium 3.1 L (3.4-5.1) mmol/L Chloride 109 H (98-107) mmol/L Carbon Dioxide 18 L (22-32) mmol/L BUN 7 (7-17) mg/dL Creatinine 0.76 (0.52-1.04) mg/dL Estimated GFR > 60 (>60) mL/min BUN/Creatinine Ratio 9.2 (6-22) Glucose 98 (70-99) mg/dL Calcium 9.2 (8.4-10.2) mg/dL Total Bilirubin 2.2 H (0.2-1.3) mg/dL AST 37 H (14-36) IU/L ALT 34 (<35) IU/L Alkaline Phosphatase 70 (38-126) U/L Total Protein 7.9 (6.3-8.2) g/dL Albumin 4.6 (3.5-5.0) g/dL Globulin 3.3 (1.7-4.1) g/dL Albumin/Globulin Ratio 1.4 (1.0-2.8) Lipase 43 (23-300) U/L Urine Color Yellow Urine Appearance Clear Urine pH 6.0 (4.5-8.0) Ur Specific [place] <=1.005 (1.000-1.035) Urine Protein Negative (Negative) Urine Glucose (UA) Negative (Negative) g/dL Urine Ketones Negative (NEGATIVE) Urine Occult Blood 2+ H (Negative) Urine Nitrate Negative (Negative) Urine Bilirubin Negative (NEGATIVE) Urine Urobilinogen 0.2 (0.2) E.U./dL Ur Leukocyte Esterase Negative (NEGATIVE) Urine RBC 1-5/hpf (0-5/HPF) Urine WBC 0-1/hpf (0-5/HPF) Ur Squamous Epith Cells 1-5 /hpf (0-5/HPF) Urine Bacteria None seen (None) Ur Culture Indicated? Cult not indicated Vol Urine Centrifuged 10ml (spun) Point of care testing: Point of Care Testing Test Results Negative Urine Dip Bedside Urine Glucose Negative Bedside Urine Bilirubin - Negative Bedside Urine Ketone - Negative Urine Specific [place] 1.005 Bedside Urine Occult Blood +++ Bedside Urine pH 6.0 Bedside Urine Protein - Negative Bedside Urine Urobilinogen - Negative Bedside Urine Nitrite - Negative Bedside Urine Leukocytes - Negative Esterase MDM Narrative Medical decision making narrative: All lab work, vital signs, nurse triage note, medication list, and previous ER visits all reviewed. CT scan showed 3 mm obstructing stone in the right proximal ureter with mild right hydronephrosis. There is also a stone in the proximal left ureter measuring up to 4.5 cm without signs of obstructive uropathy on the left. Findings most suggestive of a urethral diverticulum measuring up to 2.3cm. Patient given fluids potassium Dilaudid Zofran Flomax strainer here and will be sent home on [place] Flomax strainer and to follow up with Urology. Afebrile no white count, potassium 3.1 T bili 2.2 BUN 7 creatinine 0.76. Differential diagnosis diverticulitis pancreatitis cholecystitis kidney stone kidney infection UTI. 09/04/24, Jt Jones. 34-year-old female with right-sided truncal pain, CT scanning showed 3 mm obstructing stone right proximal ureter with right hydronephrosis. Afebrile, sirs screen negative. Urinalysis pending. Anticipated discharged home pending results of urinalysis. Assumed care. Urinalysis not consistent with infection, urine culture not triggered. Discharged as planned. Discharge Plan Departure Patient Disposition: Home Clinical Impression: Bilateral kidney stones Instructions: DI for Kidney Stones Activity Restrictions/Additional Instructions: Return with new or worsening symptoms. Take your medicines directed. Keep hydrated. Follow up with Urology referral. Prescriptions: New tamsulosin [Flomax] 0.4 mg capsule 0.4 mg PO BEDTIME Qty: 30 0RF hydrocodone-acetaminophen 5-325 mg tablet 1 tab PO Q4-6H PRN (Reason: pain) Qty: 20 0RF ondansetron 4 mg tablet,disintegrating 4 mg PO Q6H PRN (Reason: nausea and vomiting) Qty: 10 0RF No Action ENZYMES (DIGESTIVE ENZYMES) 1 tab PO BID Qty: 0 sumatriptan succinate [Imitrex] 100 mg tablet See Rx Instructions PO .COMPLEX Qty: 10 1RF Rx Instructions: take 1 tab at onset of headache; if no relief, may repeat 1 tab after at least 2 hrs; max = 2 tabs/24 hrs PO prochlorperazine maleate 10 mg tablet 10 mg PO trazodone 50 mg tablet 50 mg PO BEDTIME Qty: 30 2RF metaxalone [Skelaxin] 800 mg tablet 800 mg PO TID PRN Rx Instructions: may make drowsy, do not drive Referrals: Jose De Jesus Curry, [Physician, Urology] - As soon as possible Referral Note: 1. There is a 3 millimeter obstructing stone in the right proximal ureter, with mild right hydronephrosis. 2. There is also a stone in the proximal left ureter measuring up to 4.5 millimeter, without signs of obstructive uropathy on the left. 3. Findings most suggestive of urethral diverticulum, measuring up to 2.3 cm. Clinical Impression: Bilateral kidney stones Stand Alone Forms: Patient Portal/API, Work Release Note
--- NOTE | 2024-09-04 16:27 | DI.CT.S_ITS ---
PROCEDURE: CT ABDOMEN PELVIS W CON INDICATIONS: abd pain, nausea TECHNIQUE: After the administration of intravenous contrast, axial sections acquired from the lung bases to the pubic symphysis. Coronal and sagittal reformats were performed. For radiation dose reduction, the following was used: automated exposure control, adjustment of mA and/or kV according to patient size. COMPARISON: None. FINDINGS: Image quality: Diagnostic. Lower Chest: No significant findings. ABDOMEN: Liver: No solid mass. Gallbladder: No radiopaque gallstones or wall thickening. Biliary ducts: No biliary dilation. Pancreas: No ductal dilation. Spleen: Size is within normal limits. Adrenal Glands: No adrenal nodules. Kidneys and Ureters: There is mild right hydronephrosis. There is decreased enhancement of the renal cortex. There is a 3 millimeter stone in the right proximal ureter, the level of the L3 inferior endplate. There is also a stone in the proximal portion of the left ureter measuring 4.5 millimeter in length and 1.5 millimeter in thickness. Stomach and Bowel: Normal colonic caliber, without significant wall thickening. Peritoneum: No abnormal intraperitoneal fluid. No free air. Ventral Wall: No significant ventral hernia. Abdominal Nodes: No retroperitoneal or mesenteric adenopathy by size criteria. Vessels: Aorta and inferior vena cava are normal in size. PELVIS: Pelvic Organs: Unremarkable. Bladder: No bladder wall thickening, accounting for underdistention. Pelvic Nodes: No enlarged lymph nodes. Miscellaneous: No inguinal hernias are seen. There is a elliptical fluid containing structure in the perineum in a central and right paramedian location measuring 2.3 x 1.45 x 1.1 cm. Bones: No aggressive osseous abnormality. IMPRESSION: 1. There is a 3 millimeter obstructing stone in the right proximal ureter, with mild right hydronephrosis. 2. There is also a stone in the proximal left ureter measuring up to 4.5 millimeter, without signs of obstructive uropathy on the left. 3. Findings most suggestive of urethral diverticulum, measuring up to 2.3 cm. Dictated by: Darin Felix M.D. on 09/04/2024 at 17:20 Approved by: Darin Felix M.D. on 09/04/2024 at 17:26
[2024-09-04 17:44] VITALS: BP 135/80; PULSE 77; RESP 15; TEMP 36.8; O2SAT 97
[2024-09-04] MEDS: POTASSIUM CHLORIDE 20 MEQ/15 ML UDC 40 MEQ PO (17:50)
[2024-09-04] MEDS: ONDANSETRON 4 MG ODT PO (18:50)
[2024-09-04] MEDS: TAMSULOSIN 0.4 MG CAPSULE PO (18:50)
[2024-09-04 19:02] LABS: Appearance Urine UA CLEAR; Bilirubin Urine UA NEGATIVE (NEGATIVE); Color Urine UA YELLOW; Glucose Urine UA NEGATIVE (Negative); Ketones Urine UA NEGATIVE (NEGATIVE); Leukocyte Esterase Urine UA NEGATIVE (NEGATIVE); Nitrite Urine UA NEGATIVE (Negative); Occult Blood Urine UA 2+ (Negative); Protein Urine UA NEGATIVE (Negative); Specific Gravity Urine UA <=1.005 (1.000-1.035); Urobilinogen Urine UA 0.2 E.U./dL (0.2)
[2024-09-04 19:11] LABS: Urine Volume 10mL (spun)
[2024-09-04 19:12] LABS: Bacteria Urine None Seen; Culture Indicated Urine Cult Not Indicated; RBC Urine 1-5/HPF (0-5/HPF); Squamous Epithelial Cell Urine 1-5 /HPF (0-5/HPF); WBC Urine 0-1/HPF (0-5/HPF)
[2024-09-04 19:21] VITALS: PULSE 69; O2SAT 98
[2024-09-04 19:25] VITALS: BP 109/58; PULSE 62; RESP 16; O2SAT 98
[2024-09-04] MEDS: ONDANSETRON 4 MG ODT PREPACK 1 BOTTLE MISC (20:18)
== END 2024-09-04 20:12 | disposition home or self-care (01) ==
PROVIDERS: Emergency Provider Family Medicine
DX: N20.0 Calculus of kidney (principal); Z87.442 Personal history of urinary calculi; R11.0 Nausea
CPT/HCPCS: 36415; 74177; 80053; 81001; 81003; 81025; 83690; 85025; 96361; 96374; 96375; 96376; 99284; J1171; J2405